=== PATIENT | female | born 1990 | race Two or more races ===

== ENCOUNTER 2021-05-17 03:06 | Emergency (ER) | payer MEDICAID ==
[~2021-05-17] VITALS: Ht 149.9 cm; Wt 52.8 kg
[2021-05-17] MEDS ORDERED: SODIUM CHLORIDE 0.9% 1,000 ML IV ONE (04:00)
[2021-05-17] MEDS ORDERED: ONDANSETRON HCL 4 MG/2 ML VIAL IV ONE (04:00)
[2021-05-17 04:42] LABS: Basophils # (auto) 0 10 ^3/uL (0-0.2); Basophils % (auto) 0.3 % (0.0-2.0); Eosinophils # (auto) 0 10 ^3/uL (0-0.8); Eosinophils % (auto) 0.4 % (0.0-7.0); Hematocrit 33.8 % (36.0-46.0); Hemoglobin 11.6 g/dL (12.2-16.2); Lymphocytes # (auto) 1.5 10 ^3/uL (0.4-5.4); Mean Corpuscular Hemoglobin 30.6 pg (28.0-32.0); Mean Corpuscular Hgb Conc. 34.1 g/dL (32.0-36.0); Mean Corpuscular Volume 89.7 fL (80.0-100.0); Monocytes # (auto) 0.6 10 ^3/uL (0-1.3); Monocytes % (auto) 5.9 % (0.0-12.0); Neutrophils # (auto) 7.2 10 ^3/uL (1.6-8.6); Neutrophils % (auto) 77.4 % (37.0-80.0); Red Blood Cells 3.77 10^6/uL (4.0-5.20); Red Cell Distribution Width 12.9 % (11.8-14.3); White Blood Cell 9.4 10^3/uL (4.4-10.8)
[2021-05-17] MEDS ORDERED: ONDA-144 PO (04:42)
[2021-05-17 05:16] LABS: Calcium 8.8 mg/dL (8.5-10.1); Potassium 3.6 mmol/L (3.5-5.1)
[2021-05-17 05:19] LABS: Albumin 3.6 g/dL (3.4-5.0); BUN/Creatinine Ratio 14.3
[2021-05-17 05:22] LABS: Bilirubin, Total 0.3 mg/dL (0.2-1.0); Total Protein 7.3 g/dL (6.4-8.2)
[2021-05-17 07:01] VITALS: BP 102/61
[2021-05-17 07:39] LABS: Urine Bacteria NONE SEEN /hpf (None Seen); Urine Blood 2+ /uL (Negative); Urine Mucus MODERATE (None Seen); Urine Specific Gravity 1.031 (1.001-1.035); Urine WBC 3 /hpf (0 - 5)
== END 2021-05-17 07:07 | disposition home or self-care (01) ==
LOC: ER 03:06
DX: O21.0 Mild hyperemesis gravidarum (principal); Z3A.01 Less than 8 weeks gestation of pregnancy
CPT/HCPCS: 36415; 80053; 81001; 84702; 85025; 96374; 99283; J2405; J7030

== ENCOUNTER 2021-07-03 13:16 | Emergency (ER) | payer MEDICAID ==
[~2021-07-03] VITALS: Ht 149.9 cm; Wt 57.6 kg
[~2021-07-03 13:16] MED LIST: ONDA-144 PO
[2021-07-03] MEDS ORDERED: ACETAMINOPHEN 500 MG TAB PO ONE (15:00)
[2021-07-03 15:03] LABS: Basophils # (auto) 0.1 10 ^3/uL (0-0.2); Basophils % (auto) 1.2 % (0.0-2.0); Eosinophils # (auto) 0 10 ^3/uL (0-0.8); Eosinophils % (auto) 0.1 % (0.0-7.0); Hematocrit 34.8 % (36.0-46.0); Hemoglobin 12.1 g/dL (12.2-16.2); Lymphocytes # (auto) 0.8 10 ^3/uL (0.4-5.4); Mean Corpuscular Hemoglobin 31.3 pg (28.0-32.0); Mean Corpuscular Hgb Conc. 34.8 g/dL (32.0-36.0); Mean Corpuscular Volume 89.7 fL (80.0-100.0); Monocytes # (auto) 0.4 10 ^3/uL (0-1.3); Monocytes % (auto) 3.9 % (0.0-12.0); Neutrophils # (auto) 7.9 10 ^3/uL (1.6-8.6); Neutrophils % (auto) 85.8 % (37.0-80.0); Red Blood Cells 3.88 10^6/uL (4.0-5.20); Red Cell Distribution Width 12.8 % (11.8-14.3); White Blood Cell 9.2 10^3/uL (4.4-10.8)
[2021-07-03 15:26] LABS: Albumin 3.5 g/dL (3.4-5.0); BUN/Creatinine Ratio 13.2; Calcium 9.2 mg/dL (8.5-10.1)
[2021-07-03 15:38] LABS: Bilirubin, Total 0.3 mg/dL (0.2-1.0); Total Protein 7.5 g/dL (6.4-8.2)
[2021-07-03 17:41] VITALS: BP 112/57
== END 2021-07-03 17:44 | disposition home or self-care (01) ==
LOC: ER 13:16
DX: O26.891 Other specified pregnancy related conditions, first trimester (principal); R10.30 Lower abdominal pain, unspecified; Z3A.01 Less than 8 weeks gestation of pregnancy; Z79.899 Other long term (current) drug therapy; W18.39XA Other fall on same level, initial encounter; Y93.89 Activity, other specified; Y92.89 Other specified places as the place of occurrence of the external cause; Y99.8 Other external cause status
CPT/HCPCS: 36415; 76801; 80053; 85025

== ENCOUNTER 2021-09-10 08:54 | Emergency (ER) | payer MEDICAID ==
[~2021-09-10] VITALS: Ht 149.9 cm; Wt 62.1 kg
[2021-09-10 09:46] VITALS: BP 118/57
[2021-09-10] MEDS ORDERED: PRED10TA PO (11:23)
[2021-09-10] MEDS ORDERED: AMOX-277 PO (11:23)
== END 2021-09-10 11:30 | disposition home or self-care (01) ==
LOC: ER 08:54
DX: O99.512 Diseases of the respiratory system complicating pregnancy, second trimester (principal); J06.9 Acute upper respiratory infection, unspecified; Z3A.24 24 weeks gestation of pregnancy; Z20.822 Contact with and (suspected) exposure to COVID-19
CPT/HCPCS: 36415; 87804

== ENCOUNTER 2021-09-22 16:44 | Observation (INO) | payer MEDICAID ==
[~2021-09-22] VITALS: Ht 149.9 cm; Wt 62.3 kg
[~2021-09-22 16:44] MED LIST changes: +AMOX-277 PO; +PRED10TA PO
[2021-09-22 16:47] VITALS: BP 105/56
[2021-09-22] MEDS ORDERED: ASPI-543 PO (17:51)
[2021-09-22] MEDS ORDERED: HYDR250I6 IM (17:51)
[2021-09-22] MEDS ORDERED: PREN-96 PO (17:51)
[2021-09-22] MEDS ORDERED: TERBUTALINE SULFATE 1 MG/ML 1ML VIAL SC SCH (18:00)
== END 2021-09-22 20:56 | disposition home or self-care (01) ==
LOC: ER 16:44 → LDRP 17:33
PROVIDERS: ADMIT Obstetrics & Gynecology; ATTEND Obstetrics & Gynecology
DX: O46.92 Antepartum hemorrhage, unspecified, second trimester (principal); N93.9 Abnormal uterine and vaginal bleeding, unspecified; O26.892 Other specified pregnancy related conditions, second trimester; R10.9 Unspecified abdominal pain; D84.9 Immunodeficiency, unspecified; Z3A.25 25 weeks gestation of pregnancy
CPT/HCPCS: 59025; 76815; 76817; 81002; 94760; 96372; G0378; J3105

== ENCOUNTER 2023-04-17 06:41 | Emergency (ER) | payer MEDICAID ==
[~2023-04-17] VITALS: Ht 154.9 cm; Wt 74.3 kg
[~2023-04-17 06:41] MED LIST changes: -AMOX-277 PO; +AMOX875T4 PO; +ASPI-543 PO; +HYDR250I6 IM; +PREN-96 PO
[2023-04-17 07:46] VITALS: BP 128/78; PULSE 79; RESP 18; TEMP 98.1; O2SAT 97
[2023-04-17] MEDS ORDERED: BENZ200C64 PO (08:00)
[2023-04-17] MEDS ORDERED: AZIT500T66 PO (08:00)
== END 2023-04-17 08:07 | disposition home or self-care (01) ==
LOC: ER 06:41
DX: J20.9 Acute bronchitis, unspecified (principal)
CPT/HCPCS: 71046

== ENCOUNTER 2023-07-30 07:32 | Inpatient (IN) | payer MEDICAID ==
[~2023-07-30] VITALS: Ht 149.9 cm; Wt 72.2 kg
[~2023-07-30 07:32] MED LIST changes: +AZIT500T66 PO; +BENZ200C64 PO
[2023-07-30 08:30] LABS: Urine Bacteria None Seen /hpf (None Seen)
[2023-07-30 08:38] LABS: Basophils # (auto) 0 10 ^3/uL (0-0.2); Basophils % (auto) 0.4 % (0.0-2.0); Eosinophils # (auto) 0.1 10 ^3/uL (0-0.8); Eosinophils % (auto) 2.1 % (0.0-7.0); Hematocrit 36.6 % (36.0-46.0); Hemoglobin 12.2 g/dL (12.2-16.2); Lymphocytes # (auto) 1.5 10 ^3/uL (0.4-5.4); Lymphocytes % (auto) 23.9 % (10.0-50.0); Mean Corpuscular Hemoglobin 29.8 pg (28.0-32.0); Mean Corpuscular Hgb Conc. 33.3 g/dL (32.0-36.0); Mean Corpuscular Volume 89.6 fL (80.0-100.0); Monocytes # (auto) 0.4 10 ^3/uL (0-1.3); Monocytes % (auto) 5.6 % (0.0-12.0); Neutrophils # (auto) 4.4 10 ^3/uL (1.6-8.6); Nucleated Red Blood Cells % 0.1 %; Red Blood Cells 4.08 10^6/uL (4.0-5.20); White Blood Cell 6.5 10^3/uL (4.4-10.8)
[2023-07-30] MEDS: KETOROLAC TROMETH 60MG/2ML VIAL IM ONE (08:56)
[2023-07-30 08:57] LABS: Urine Blood 3+ /uL (Negative); Urine Clarity Ex.Turbid (Clear); Urine Color Light-Red (Yellow); Urine Mucus FEW (None Seen); Urine Protein, UAD 1+ (Negative); Urine Specific Gravity 1.024 (1.001-1.035); Urine Urobilinogen Normal (Negative); Urine WBC 420 /hpf (0 - 5); Urine WBC Clumps PRESENT /hpf (None Seen)
[2023-07-30] MEDS ORDERED: MIDAZOLAM HCL 2MG/2ML 2ml VIAL (1mg/ml) ONE (11:32)
[2023-07-30] MEDS ORDERED: fentaNYL CITRATE 100 MCG/2 ML VL ONE (11:32)
[2023-07-30] MEDS ORDERED: MEPERIDINE HCL (25 MG/ML) 1ML VIAL ONE (11:32)
[2023-07-30] MEDS: LACTATED RINGER'S 1,000 ML IV ONE (11:49)
[2023-07-30 11:50] LABS: Alanine Aminotransferase 30 U/L (7-40); Albumin 4.3 g/dL (3.2-4.8); Alkaline Phosphatase 57 U/L (46-116); Anion Gap 9 (5-15); Aspartate Aminotransferase 26 U/L (13-40); BUN/Creatinine Ratio 14.1 (10.0-20.0); Bilirubin, Total 0.4 mg/dL (0.2-1.0); Blood Urea Nitrogen 10 mg/dL (9-23); Calcium 8.8 mg/dL (8.5-10.1); Carbon Dioxide 21 mmol/L (20-30); Chloride 108 mmol/L (98-107); Glucose 112 mg/dL (74-106); Potassium 3.8 mmol/L (3.5-5.1); Sodium 138 mmol/L (136-145); Total Protein 6.4 g/dL (5.7-8.2)
[2023-07-30] MEDS ORDERED: LIDOCAINE 1%-Mpf/Epinephrine 1:200,000 30ml VIAL ONE (11:57)
[2023-07-30] MEDS ORDERED: SUCCINYLCHOLINE CHLORIDE 20 MG/ML 10ML VIAL IV ONE (11:58)
[2023-07-30] MEDS ORDERED: BUPIVACAINE W/ EPINEPH 0.5% INJ 50ML MDV IJ ONE (11:58)
[2023-07-30] MEDS ORDERED: BUPIVACAINE HCL 0 ML ONE (11:58)
[2023-07-30] MEDS ORDERED: METHYLENE BLUE 0.5% 5MG/ML 10ml AMP IV ONE (11:58)
[2023-07-30 12:00] LABS: Partial Thromboplastin Time 26.9 SEC (24.5-34.5); Prothrombin Time 10.5 sec (9.3-11.8)
[2023-07-30] MEDS ORDERED: ceFAZolin 2 GM/D5W50ml 50 ML IV ONE ×2 (12:00→12:01)
[2023-07-30] MEDS ORDERED: LACTATED RINGER'S 1,000 ML IV SCH (12:00)
[2023-07-30] MEDS ORDERED: MORPHINE SULFATE 4 MG/ML SYR/VIAL IV PRN (12:45)
[2023-07-30] MEDS ORDERED: KETOROLAC TROMETH 30 MG/ML 1ML VIAL IV ONE (12:45)
[2023-07-30] MEDS ORDERED: LABETALOL HCL 5 MG/ML 4ML SYRINGE IV PRN (12:45)
[2023-07-30] MEDS ORDERED: MIDAZOLAM HCL 2MG/2ML 2ml VIAL (1mg/ml) IV PRN (12:45)
[2023-07-30] MEDS ORDERED: ePHEDrine SULFATE 50 MG/ML AMP IV PRN (12:45)
[2023-07-30] MEDS ORDERED: ONDANSETRON HCL 4 MG/2 ML VIAL IV ONE (12:45)
[2023-07-30] MEDS ORDERED: HYDROmorphone HCL 2 MG/ML VL/or syr IV PRN (12:45)
[2023-07-30] MEDS ORDERED: PROPOFOL 10 MG/ML 20 ML IV ONE (12:58)
[2023-07-30] MEDS ORDERED: DexAMETHasone SOD PHOS 10MG/1ML VIAL INJ ONE (12:58)
[2023-07-30] MEDS ORDERED: SUGAMMADEX 200mg/2ml Vial (100MG/ML) IV ONE (13:08)
[2023-07-30] MEDS ORDERED: IBUP-1455 PO ×2 (13:27→14:41)
[2023-07-30] MEDS ORDERED: ROCURONIUM 10MG/ML 10ML VIAL IV ONE (13:27)
[2023-07-30] MEDS ORDERED: HYDR-4902 PO ×2 (13:27→14:41)
[2023-07-30 13:45] VITALS: PULSE 98; RESP 11; TEMP 98.5; O2SAT 98
[2023-07-30 15:00] VITALS: BP 109/69; PULSE 94; RESP 19; O2SAT 98
== END 2023-07-30 13:28 | disposition home or self-care (01) | DRG 547 ==
LOC: ER 07:32 → OVERFLOW 11:53
PROVIDERS: ADMIT Obstetrics & Gynecology; ATTEND Obstetrics & Gynecology
PROC: 0UT54ZZ Resection of Right Fallopian Tube, Percutaneous Endoscopic Approach (ICD-10-PCS; 2023-07-30)
PROC: 10T24ZZ Resection of Products of Conception, Ectopic, Percutaneous Endoscopic Approach (ICD-10-PCS; principal; 2023-07-30 12:20)
DX: O00.101 Right tubal pregnancy without intrauterine pregnancy (principal); K66.1 Hemoperitoneum; Z3A.01 Less than 8 weeks gestation of pregnancy
CPT/HCPCS: 36415; 76801; 76817; 80053; 81001; 84702; 85025; 85610; 85730; 96372; G0378; J0330; J1100; J1885; J2250; J2405; J2704; J3490

== ENCOUNTER 2024-02-22 03:12 | Emergency (ER) | payer MEDICAID ==
[~2024-02-22] VITALS: Ht 149.9 cm; Wt 72.4 kg
[~2024-02-22 03:12] MED LIST changes: -AMOX875T4 PO; -ASPI-543 PO; -AZIT500T66 PO; -BENZ200C64 PO; +HYDR-4902 PO; -HYDR250I6 IM; +IBUP-1455 PO; -ONDA-144 PO; -PRED10TA PO; -PREN-96 PO
[2024-02-22 03:58] VITALS: TEMP 98.3
[2024-02-22 04:14] VITALS: PULSE 73; RESP 16; O2SAT 96
--- NOTE | 2024-02-22 04:18 | ED.PDOC ---
History of Present Illness HPI Comments 34 y/o F, with a Hx of anemia, HLD, and obesity, presents c/o abnormal vaginal bleeding and abdominal pain, today. Patient reports being 3-pffwk-gkw-4-days and having unprovoked and sudden onset of mild cramping pain in addition to noticing blood, while using her bathroom, this morning. Patient comm ents on this being her sixth ([id number]), with last being an ectopic w/accompanying ED visit in July 2023. Patient denies having any nausea, vomiting, urinary symptoms, fever, chills, or other associated symptoms or modifiers at this time. Chief Complaint: Vaginal Bleed Time Seen by MD: 04:00 Primary Care Provider: DR MAE-OB Reviewed Notes: Nurses Notes, Production Control Technologist Notes, Medications, Allergies Allergies: Coded Allergies: NO KNOWN ALLERGIES (Unverified , 05/17/21) Home Meds Active Scripts Hydrocodone-Acetaminophen (Hydrocodone Bitartrate/AC 5-325 mg) 1 Tab Tab, 1 TAB PO Q6HPRN PRN, #20 TAB Prov:GERY SANTACRUZ DO 07/30/23 Ibuprofen Micronized (Ibuprofen) 800 Mg Tab, 800 MG PO Q8HPRN PRN, #30 TAB Prov:GREY SANTACRUZ DO 07/30/23 Information Source: Patient Mode of Arrival: Ambulatory Severity: Moderate Timing: Hours Duration: Since onset Prehospital treatment: None Past Medical History PAST MEDICAL HISTORY: Anemia, High Lipids Past Medical History (Other): obesity Surgical History: Denies all surgeries EXTRACTOR TENDER RAW STOCK History: No Pertinent EXTRACTOR TENDER RAW STOCK History Family History Family History: Reviewed,noncontributory to illness Social History Smoker: Non-Smoker Alcohol: Denies ETOH Use Drugs: Denies Drug Use Lives In: Home Constitutional: denies: chills, diaphoresis, fatigue, fever, malaise, sweats, weakness, others EENTM: denies: blurred vision, double vision, ear bleeding, ear discharge, ear drainage, ear pain, ear ringing, eye pain, eye redness, hearing loss, mouth pain, mouth swelling, nasal discharge, nose bleeding, nose congestion, nose pain, photophobia, tearing, throat pain, throat swelling, voice changes, others Respiratory: denies: cough, hemoptysis, orthopnea, SOB at rest, shortness of breath, SOB with excertion, stridor, wheezing, others Cardiovascular: denies: chest pain, dizzy spells, diaphoresis, Dyspnea on exertion, edema, irregular heart beat, left arm pain, lightheadedness, palpi tations, PND, syncope, others Gastrointestinal: reports: abdominal pain; denies: abdomen distended, blood streaked bowels, constipated, diarrhea, dysphagia, difficulty swallowing, hematemesis, melena, nausea, poor appetite, poor fluid intake, rectal bleeding, rectal pain, vomiting, others Genitourinary: reports: abnormal vagina bleeding; denies: burning, dyspareunia, dysuria, flank pain, frequency, hematuria, incontinence, pain, , vagina discharge, urgency, others Neurological: denies: dizziness, fainting, headache, left sided numbness, left sided weakness, numbness, paresthesia, pre-existing deficit, right sided numbness, right sided weakness, seizure, speech problems, tingling, tremors, weakness, others Musculoskeletal: denies: back pain, gout, joint pain, joint swelling, muscle pain, muscle stiffness, neck pain, others Integumetry: denies: bruises, change in color, change in hair/nails, dryness, laceration, lesions, lumps, rash, wounds, others Allergic/Immunocompromised: denies: Difficulty Healing, Frequent Infections, Hives, Itching, others Hematologic/Lymphatic: denies: anemia, blood clots, easy bleeding, easy bruising, swollen glands, others Endocrine: denies: excessive hunger, excessive sweating, excessive thirst, excessive urination, flushing, intolerance to cold, intolerance to heat, unexplained weight gain, unexplained weight loss, others Psychiatric: denies: anxiety, bipolar disorder, depression, hopeless, panic disorder, schizophrenia, sleepless, suicidal, others All Other Systems: Reviewed and Negative Physical Exam General Appearance: Moderate Distress HEENT: Normal ENT Inspection, Pharynx Normal, TMs Normal Neck: Full Range of Motion, Non-Tender, Normal, Normal Inspection Respiratory: Chest Non-Tender, Lungs Clear, No Accessory Muscle Use, No Respiratory Distress, Normal Breath Sounds Cardiovascular: No Edema, No JVD, No Murmur, No Gallop, Normal Peripheral Pulses, Regular Rate/Rhythm Breast Exam: Deferred Gastrointestinal: No Organomegaly, Non Tender, No Pulsatile Mass, Normal Bowel Sounds, Soft Genitalia: Deferred Pelvic: Deferred Rectal: Deferred Extremities: No calf tenderness, Normal capillary refill, Normal inspection, Normal range of motion, Non-tender, No pedal edema Musculoskeletal : Apperance: Normal Neurologic: Alert, real estate broker associate II-XII nml as Tested, No Motor Deficits, Normal Affect, Normal Mood, No Sensory Deficits Cerebellar Function: Normal Reflexes: Normal Skin: Dry, Normal Color, Warm Peripheral Pulses: 3+ Radial (R), 3+ Radial (L) Lymphatic: No Adenopathy Was a procedure done? Was a procedure done?: No Differential Dx Considerations may include: at-risk , ectopic , menorrhagia, menometrorrhagia, UTI X-Ray, Labs, Meds, VS Vital Signs Date Time Temp Pulse Resp B/P (MAP) Pulse Ox O2 Delivery O2 Flow Rate FiO2 02/22/24 04:14 73 16 96 Room Air* 0 21 21 02/22/24 03:58 98.3 79 18 116/71 (86) 97 98.3 02/22/24 03:28 98.5 86 18 130/73 (92) 95 Lab Test 02/22/24 04:43 02/22/24 04:14 Range/Units Beta HCG, Quantitative 371809.8 H 1.5-4.2 mIU/mL Urine Color Light-yellow Yellow Urine Clarity Clear Clear Urine pH 7.0 5.0-9.0 Urine Specific [place] 1.027 1.001-1.035 Urine Protein Trace H Negative Urine Ketones Negative Negative Urine Blood 2+ H Negative /uL Urine Nitrite Negative Negative Urine Bilirubin Negative Negative Urine Urobilinogen 2 H Negative mg/dL Urine Leukocyte Esterase Negative Negative /uL Urine RBC 19 0 - 4 /hpf Urine WBC 2 0 - 5 /hpf Urine Squamous Epithelial Cells Few <5 /hpf Urine Bacteria Mod H None Seen /hpf Urine Glucose Normal Normal mg/dL Patient alert. Complaining of vaginal spotting. Vitals stable. Answering all questions. six. Last she had ectopic. Reviewed her previous visit. Explained to the patient about the treatment plan. We will be followed by Dr. Marley. Time of 1ST Reevaluation: 04:30 Reevaluation 1ST: Improved Patient Education/Counseling: Diagnosis, Treatment Family Education/Counseling: No Family Present Assigned to Dr. Marley Departure 1 Departure Time of Disposition: 04:36 Impression: Primary Impression: Vaginal bleeding during Disposition: 30 STILL A PATIENT Condition: Good Discharged With: Self Critical Care Note Critical Care Time?: Yes (45 min-critical care time only) Stability Stability form required: No Heart Score Heart Score: Heart Score Response (Comments) Value History N/A 0 EKG N/A 0 Age N/A 0 Risk Factors N/A 0 Troponin N/A 0 Total 0 I personally scribed for NITHYA SAEED MD ([email or web address]) on 02/22/24 at 04:18. Electronically submitted by Juan R Boston [email or web address]). NITHYA SAEED MD Feb 22, 2024 04:18
[2024-02-22 05:13] LABS: Urine Bacteria MOD /hpf (None Seen); Urine Blood 2+ /uL (Negative); Urine Clarity Clear (Clear); Urine Color Light-Yellow (Yellow); Urine Protein, UAD TRACE (Negative); Urine Specific Gravity 1.027 (1.001-1.035); Urine Urobilinogen 2 mg/dL (Negative); Urine WBC 2 /hpf (0 - 5)
[2024-02-22 06:24] VITALS: BP 113/50; PULSE 71; RESP 16; O2SAT 99
--- NOTE | 2024-02-22 07:32 | DVH ---
OB ULTRASOUND CLINICAL HISTORY: bleeding TECHNIQUE: Transvaginal OB ultrasound. Comparison: None FINDINGS: The uterus measures 12.2 x 7.3 x 6.0 cm. There is a gestational sac within the uterus with appropriat e surrounding decidua. Within the gestational sac a yolk sac and pole are identified. The crown -rump length measures 3.2 cm which corresponds to a gestational age of 10 weeks 0 days. heart a ctivity is demonstrated with heart tone of 173 BPM. The right ovary is not seen on the current study. The left ovary measures 2.6 x 2.0 x 2.8 cm and maggie ears within normal limits. There is a 1.4 cm follicle in the left ovary. There is no evidence of an adnexal mass. There is no free fluid within the cul-de-sac. IMPRESSION: 1. Single viable intrauterine with gestational age of 10 weeks 0 days based on crown-rump nereida gth measurement. HS:Y
== END 2024-02-22 08:00 | disposition home or self-care (01) ==
LOC: ER 03:12
DX: O20.9 Hemorrhage in early pregnancy, unspecified (principal); R10.2 Pelvic and perineal pain; E78.5 Hyperlipidemia, unspecified; E66.9 Obesity, unspecified; Z68.32 Body mass index [BMI] 32.0-32.9, adult; Z3A.10 10 weeks gestation of pregnancy; Z85.9 Personal history of malignant neoplasm, unspecified; Z79.899 Other long term (current) drug therapy
CPT/HCPCS: 36415; 76801; 81001; 84702

== ENCOUNTER 2024-03-26 18:24 | Emergency (ER) | payer MEDICAID ==
[~2024-03-26] VITALS: Ht 149.9 cm; Wt 70.0 kg
--- NOTE | 2024-03-26 19:02 | ED.PDOC ---
History of Present Illness HPI Comments 34 y/o F, Hx of anemia and HLD, is BIBA for syncope, today. Per EMS report, patient is 14x weeks and was at a [facility] pharmacy, waiting in line, when she had a sudden and unprovoked syncopal episode onset with a ground-level fall that was witnessed by bystanders, this evening. At time of assessment, patient is back to her normal baseline and endorses no further complaints, with exception of 5/10, aching right knee pain. She reports no additional pertinent or relevant Hx along with any prior symptoms or injuries or recent sick contact, travel, stressors, strenuous activities, or substance use/exposure. She denies having any additional injuries, dizziness, lightheadedness, weakness, numbness, vision or speech changes, or other associated symptoms or modifiers at this time. Time Seen by MD: 18:20 Primary Care Provider: DR REEVES Reviewed Notes: Nurses Notes, Title One Reading Teacher Notes, Medications, Allergies Allergies: Coded Allergies: NO KNOWN ALLERGIES (Unverified , 05/17/21) Home Meds Active Scripts Hydrocodone-Acetaminophen (Hydrocodone Bitartrate/AC 5-325 mg) 1 Tab Tab, 1 TAB PO Q6HPRN PRN, #20 TAB Prov:GREY SANTACRUZ DO 07/30/23 Ibuprofen Micronized (Ibuprofen) 800 Mg Tab, 800 MG PO Q8HPRN PRN, #30 TAB Prov:GERY SANTACRUZ DO 07/30/23 Information Source: Patient, Emergency Med Personnel Mode of Arrival: EMS Severity: Moderate Timing: Hours Duration: Since onset Prehospital treatment: 12 Lead EKG, Accucheck, Manager Track Past Medical History PAST MEDICAL HISTORY: Anemia, High Lipids Surgical History: Denies all surgeries REFINING MACHINE OPERATOR History: No Pertinent REFINING MACHINE OPERATOR History Family History Family History: Reviewed,noncontributory to illness Social History Smoker: Non-Smoker Alcohol: Denies ETOH Use Drugs: Denies Drug Use Lives In: Home Cardiovascular: reports: syncope Musculoskeletal: reports: others (right knee pain ) All Other Systems: Reviewed and Negative (negativer otherwise stated in HPI) Physical Exam General Appearance: No Apparent Distress, Normal HEENT: Normal ENT Inspection, Pharynx Normal, TMs Normal Neck: Full Range of Motion, Non-Tender, Normal, Normal Inspection Respiratory: Chest Non-Tender, Lungs Clear, No Accessory Muscle Use, No Respiratory Distress, Normal Breath Sounds Cardiovascular: No Edema, No JVD, No Murmur, No Gallop, Normal Peripheral Pu lses, Regular Rate/Rhythm Breast Exam: Deferred Gastrointestinal: No Organomegaly, Non Tender, No Pulsatile Mass, Normal Bowel Sounds, Soft Genitalia: Deferred Pelvic: Deferred Rectal: Deferred Extremities: No calf tenderness, Normal capillary refill, Normal range of motion, No pedal edema, Tender (right knee tenderness ) Musculoskeletal : Apperance: Normal Neurologic: Alert, upholstery instructor II-XII nml as Tested, No Motor Deficits, Normal Affect, Normal Mood, No Sensory Deficits Cerebellar Function: Normal Reflexes: Normal Skin: Dry, Normal Color, Warm Lymphatic: No Adenopathy Was a procedure done? Was a procedure done?: No Differential Dx Considerations may include: syncope, dehydration, electrolyte imbalance, viral syndrome, anemia X-Ray, Labs, Meds, VS Vital Signs Date Time Temp Pulse Resp B/P (MAP) Pulse Ox O2 Delivery O2 Flow Rate FiO2 03/26/24 19:13 98.1 86 16 113/68 (83) 98 03/26/24 18:24 77 Lab Test 03/26/24 19:38 03/26/24 18:54 Range/Units Troponin I High Sensitivity < 3 L < 3 L </=34 ng/L White Blood Count 8.6 4.4-10.8 10^3/uL Red Blood Count 3.89 L 4.0-5.20 10^6/uL Hemoglobin 12.1 L 12.2-16.2 g/dL Hematocrit 36.0 36.0-46.0 % Mean Corpuscular Volume 92.5 80.0-100.0 fL Mean Corpuscular Hemoglobin 31.2 28.0-32.0 pg Mean Corpuscular Hemoglobin Concent 33.7 32.0-36.0 g/dL Red Cell Distribution Width 13.0 11.8-14.3 % Platelet Count 245 140-450 10^3/uL Mean Platelet Volume 9.9 6.9-10.8 fL Neutrophils (%) (Auto) 83.5 H 37.0-80.0 % Lymphocytes (%) (Auto) 10.4 10.0-50.0 % Monocytes (%) (Auto) 5.2 0.0-12.0 % Eosinophils (%) (Auto) 0.8 0.0-7.0 % Basophils (%) (Auto) 0.1 0.0-2.0 % Neutrophils # (Auto) 7.2 1.6-8.6 10 ^3/uL Lymphocytes # (Auto) 0.9 0.4-5.4 10 ^3/uL Monocytes # (Auto) 0.4 0-1.3 10 ^3/uL Eosinophils # (Auto) 0.1 0-0.8 10 ^3/uL Basophils # (Auto) 0 0-0.2 10 ^3/uL Nucleated Red Blood Cells 0.0 % Sodium Level 138 136-145 mmol/L Potassium Level 4.2 3.5-5.1 mmol/L Chloride Level 105 98-107 mmol/L Carbon Dioxide Level 25 20-31 mmol/L Anion Gap 8 5-15 Blood Urea Nitrogen 7 L 9-23 mg/dL Creatinine 0.58 0.550-1.02 mg/dL Glomerular Filtration Rate Calc 122 >90 mL/min BUN/Creatinine Ratio 12.1 10.0-20.0 Serum Glucose 83 74-106 mg/dL Calcium Level 9.7 8.7-10.4 mg/dL [place] [address] Ph: [phone] DIAGNOSTIC IMAGING Diagnostic Imaging Report : [id number] Signed PATIENT: JOSE L HINSON ACCT: [id number] UNIT: [id number] : 1990 LOC: ER ROOM / BED: / AGE / SEX: 34 / F ADM STATUS: REG ER SERVICE 15 ORDERING PHYSICIAN: SOWMYA WATERS MD PROCEDURE(s): OBUS - OB ULTRASOUND COMP GTR 14 WKS REASON: 14weeks fall ORDER NUMBER(s): [id number], ACCESSION NUMBER(s): [id number] OB ULTRASOUND, LIMITED CLINICAL INDICATION: 14weeks fall TECHNIQUE: Multiple grayscale ultrasound and M-mode images were obtained of the pelvis for evaluation of intrauterine . COMPARISON: US OB ULTRASOUND COMP LESS 14WKS on DOS: 02/22/24 FINDINGS: A single living fetus is seen in breech presentation. Biparietal diameter: 2.76 cm (14 weeks, 6 days) Head Circumference: 10.19 cm (14 weeks, 5 days) Abdomen Circumference: 8.82 cm (15 weeks, 0 days) Femur Length: 1.63 cm (14 weeks, 6 days) Estimated weight: 110 grams (+/- 16.51 grams). Placenta: Anterior. Amniotic fluid: Visibly normal. heart rate: 158 beats/min. A complete anatomic survey was not performed on this exam. IMPRESSION: Single intrauterine with an estimated gestational age of 14 weeks, 6 days, corresponding to an estimated date of delivery of 09/18/2024. ATED BY: ANTONIO RAND MD DICTATED DATE/TIME: 03/26/242058 SIGNED BY: ANTONIO RAND MD SIGNED DATE/TIME: 03/26/242058 CC: [place] [address] Ph: [phone] DIAGNOSTIC IMAGING Diagnostic Imaging Report : [id number] Signed PATIENT: JOSE L HINSON ACCT: [id number] UNIT: [id number] : 1990 LOC: ER ROOM / BED: / AGE / SEX: 34 / F ADM STATUS: REG ER SERVICE 42 ORDERING PHYSICIAN: SOWMYA WATERS MD PROCEDURE(s): RKN3 - R KNEE 3V XRAY REASON: fall ORDER NUMBER(s): [id number], ACCESSION NUMBER(s): [id number] XY R KNEE 3V XRAY, INDICATION: fall TECHNICAL DATA: Frontal , oblique and lateral views were obtained of the right knee. COMPARISON: None FINDINGS: No fracture is identified. Medial, lateral and patellofemoral compartment joint spaces are maintained. Alignment is anatomic. Soft tissues are within normal limits. No joint effusion is demonstrated. IMPRESSION: No acute fracture or dislocation of the right knee. ATED BY: JHONATAN BULLARD MD DICTATED DATE/TIME: 03/26/242013 SIGNED BY: JHONATAN BULLARD MD SIGNED DATE/TIME: 03/26/242013 CC: Time of 1ST Reevaluation: 18:50 Reevaluation 1ST: Unchanged Patient Education/Counseling: Diagnosis, Treatment Family Education/Counseling: No Family Present Departure 1 Departure Time of Disposition: 23:28 (Patient's workup is benign. Ultrasound is negative. Patient was offered admission but instead would like to go home. We will discharge patient home with outpatient follow up) Impression: Primary Impression: Syncope and collapse Additional Impression: Qualified Codes: Z3A.14 - 14 weeks gestation of Disposition: HOME / SELF CARE / HOMELESS Condition: Stable Additional Instructions: Your workup today was benign. Your ultrasound was normal showing you at 14 weeks and 6 days. You should follow up with your regular doctor within 1 week. You should stay well rested and well hydrated. If your symptoms worsen or you have any other concerns please return to the emergency room. Discharged With: Self Critical Care Note Critical Care Time?: No Stability Stability form required: No Heart Score Heart Score: Heart Score Response (Comments) Value History N/A 0 EKG N/A 0 Age N/A 0 Risk Factors N/A 0 Troponin N/A 0 Total 0 I personally scribed for SOWMYA WATERS MD ([email or web address]) on 03/26/24 at 19:01. Electronically submitted by Juan R Boston ([email or web address]). I personally scribed for SOWMYA WATERS MD ([email or web address]) on 03/26/24 at 21:58. Electronically submitted by Juan R Boston ([email or web address]). SOWMYA WATERS MD Mar 26, 2024 19:01
[2024-03-26 19:31] LABS: Basophils # (auto) 0 10 ^3/uL (0-0.2); Basophils % (auto) 0.1 % (0.0-2.0); Eosinophils # (auto) 0.1 10 ^3/uL (0-0.8); Eosinophils % (auto) 0.8 % (0.0-7.0); Hemoglobin 12.1 g/dL (12.2-16.2); Lymphocytes # (auto) 0.9 10 ^3/uL (0.4-5.4); Lymphocytes % (auto) 10.4 % (10.0-50.0); Mean Corpuscular Hemoglobin 31.2 pg (28.0-32.0); Mean Corpuscular Hgb Conc. 33.7 g/dL (32.0-36.0); Mean Corpuscular Volume 92.5 fL (80.0-100.0); Monocytes # (auto) 0.4 10 ^3/uL (0-1.3); Monocytes % (auto) 5.2 % (0.0-12.0); Neutrophils # (auto) 7.2 10 ^3/uL (1.6-8.6); Neutrophils % (auto) 83.5 % (37.0-80.0); Platelet Count (auto) 245 10^3/uL (140-450); Red Blood Cells 3.89 10^6/uL (4.0-5.20); White Blood Cell 8.6 10^3/uL (4.4-10.8)
[2024-03-26 19:38] LABS: Chloride 105 mmol/L (98-107); Potassium 4.2 mmol/L (3.5-5.1); Sodium 138 mmol/L (136-145)
[2024-03-26 19:39] LABS: Anion Gap 8 (5-15); Carbon Dioxide 25 mmol/L (20-31)
[2024-03-26 19:40] LABS: Calcium 9.7 mg/dL (8.7-10.4)
[2024-03-26 19:44] LABS: BUN/Creatinine Ratio 12.1 (10.0-20.0); Glucose 83 mg/dL (74-106)
[2024-03-26 19:46] LABS: Blood Urea Nitrogen 7 mg/dL (9-23)
--- NOTE | 2024-03-26 20:17 | DVH ---
XY R KNEE 3V XRAY, INDICATION: fall TECHNICAL DATA: Frontal , oblique and lateral views were obtained of the right knee. COMPARISON: None FINDINGS: No fracture is identified. Medial, lateral and patellofemoral compartment joint spaces are maintained . Alignment is anatomic. Soft tissues are within normal limits. No joint effusion is demonstrated. IMPRESSION: No acute fracture or dislocation of the right knee.
--- NOTE | 2024-03-26 21:01 | DVH ---
OB ULTRASOUND, LIMITED CLINICAL INDICATION: 14weeks fall TECHNIQUE: Multiple grayscale ultrasound and M-mode images were obtained of the pelvis for evaluation of intrauterine . COMPARISON: US OB ULTRASOUND COMP LESS 14WKS on DOS: 02/22/24 FINDINGS: A single living fetus is seen in breech presentation. Biparietal diameter: 2.76 cm (14 weeks, 6 days) Head Circumference: 10.19 cm (14 weeks, 5 days) Abdomen Circumference: 8.82 cm (15 weeks, 0 days) Femur Length: 1.63 cm (14 weeks, 6 days) Estimated weight: 110 grams (+/- 16.51 grams). Placenta: Anterior. Amniotic fluid: Visibly normal. heart rate: 158 beats/min. A complete anatomic survey was not performed on this exam. IMPRESSION: Single intrauterine with an estimated gestational age of 14 weeks, 6 days, corresponding to an estimated date of delivery of 09/18/2024.
[2024-03-27 00:51] VITALS: BP 108/57; PULSE 74; RESP 18; TEMP 98.2; O2SAT 100
== END 2024-03-26 23:29 | disposition home or self-care (01) ==
LOC: EDBD 18:24 → ER 18:24
DX: O26.892 Other specified pregnancy related conditions, second trimester (principal); R55 Syncope and collapse; O99.282 Endocrine, nutritional and metabolic diseases complicating pregnancy, second trimester; D64.9 Anemia, unspecified; E78.5 Hyperlipidemia, unspecified; Z79.899 Other long term (current) drug therapy; Z3A.14 14 weeks gestation of pregnancy
CPT/HCPCS: 36415; 73562; 76805; 80048; 84484; 85025